=== PATIENT | male | born 1960 | race Caucasian/White ===

== ENCOUNTER → 2025-03-26 | Outpatient (CLI) | payer MEDICARE | END | disposition home or self-care (01) | LOC: RAD 10:09 | PROVIDERS: ATTEND Nurse Practitioner | DX: M47.22 Other spondylosis with radiculopathy, cervical region (principal); M48.03 Spinal stenosis, cervicothoracic region; M53.82 Other specified dorsopathies, cervical region; M47.814 Spondylosis without myelopathy or radiculopathy, thoracic region; M51.34 Other intervertebral disc degeneration, thoracic region; M25.78 Osteophyte, vertebrae | CPT/HCPCS: 72141; 76014; 76015 ==